=== PATIENT | female | born 1935 | race Caucasian/White ===

== ENCOUNTER 2018-07-21 12:37 | Emergency (ER) | payer MEDICARE, BC ==
[~2018-07-21] VITALS: Ht 152.4 cm; Wt 54.4 kg
[~2018-07-21 12:37] MED LIST: ALENDRONATE SOD70 MG PO; ASPIRIN325 MG PO; CLOPIDOGREL75 MG PO; FOLIC ACID1 MG PO; GINKGO BILOBA120 MG PO; KLONOPIN0.5 MG PO; LEVOTHYROXINE75 MCG PO; LOSARTAN POTAS100 MG PO; METFORMIN HCL500 MG PO; METOPROLOL TART25 MG PO; NAMENDA10 MG PO; PRAVASTATIN SOD20 MG PO; VITAMIN D1000 UNI1 PO; WELLBUTRIN SR150 MG PO
[2018-07-21 13:19] LABS: BASOPHILS # (AUTO) 0.1 (0.0-0.1); EOSINOPHILS # (AUTO) 0.1 (0.0-0.4); EOSINOPHILS % 2.2 % (0.0-6.0); HEMATOCRIT 36.4 % (34.2-44.1); LYMPHOCYTES # (AUTO) 1.2 (1.0-3.2); LYMPHOCYTES % 20.1 % (18.0-39.1); MEAN CORPUSCULAR HEMOGLOBIN 30.1 pg (28-32); MEAN CORPUSCULAR VOLUME 91.2 fL (81-99); MONOCYTES # (AUTO) 0.4 (0.2-0.8); MONOCYTES % 6.7 % (4.4-11.3); NEUTROPHILS # (AUTO) 4.2 (2.1-6.9); NEUTROPHILS % 69.7 % (38.7-80.0); PLATELET COUNT 313 x10e3/uL (140-360); RED BLOOD COUNT 3.99 x10e6/uL (3.6-5.1); RED CELL DISTRIBUTION WIDTH 12.6 % (11.7-14.4)
[2018-07-21 13:37] LABS: ALANINE AMINOTRANSFERASE 15 IU/L (0-55); ALBUMIN 3.6 g/dL (3.5-5.0); ALBUMIN/GLOBULIN RATIO 1.1 (0.8-2.0); ALKALINE PHOSPHATASE 95 IU/L (40-150); ANION GAP 15.4 mmol/L (8-16); BLOOD UREA NITROGEN 13 mg/dL (7-26); BUN/CREATININE RATIO 16 (6-25); CALCIUM 9.9 mg/dL (8.4-10.2); CARBON DIOXIDE 25 mmol/L (22-29); CHLORIDE 102 mmol/L (98-107); CREATININE, SERUM 0.83 mg/dL (0.57-1.11); EST GLOMERULAR FILTRATION RATE > 60 ML/MIN (60-); GLUCOSE 178 mg/dL (74-118); POTASSIUM 3.4 mmol/L (3.5-5.1); SODIUM 139 mmol/L (136-145)
[2018-07-21 13:46] LABS: CLARITY,URINE SL CLOUDY (CLEAR); COLOR,URINE YELLOW (YELLOW)
[2018-07-21 13:48] LABS: BILIRUBIN,URINE NEGATIVE (NEGATIVE); KETONES,URINE NEGATIVE (NEGATIVE); LEUKOCYTE ESTERASE ,URINE NEGATIVE (NEGATIVE); NITRITE,URINE NEGATIVE (NEGATIVE); PROTEIN,URINE DIPSTICK NEGATIVE (NEGATIVE); URINE UROBILINOGEN 0.2 mg/dL (0.2 - 1)
[2018-07-21 13:51] LABS: BACTERIA,URINE MODERATE /HPF; EPITHELIAL CELLS,URINE MODERATE /LPF; RBC,URINE 0-5 /HPF (0-5)
[2018-07-21 14:34] VITALS: BP 168/81
== END 2018-07-21 14:35 | disposition home or self-care (01) ==
LOC: ER 12:37
DX: R25.1 Tremor, unspecified (principal); F03.90 Unspecified dementia, unspecified severity, without behavioral disturbance, psychotic disturbance, mood disturbance, and anxiety; E03.9 Hypothyroidism, unspecified; I25.10 Atherosclerotic heart disease of native coronary artery without angina pectoris; K21.9 Gastro-esophageal reflux disease without esophagitis
CPT/HCPCS: 36415; 80053; 81001; 84443; 85025; 87086; 99283

== ENCOUNTER 2024-05-07 17:16 | Emergency (ER) | payer MEDICARE, BC ==
[~2024-05-07] VITALS: Ht 152.4 cm; Wt 54.4 kg
[2024-05-07 17:38] VITALS: TEMP 98.7
[2024-05-07 18:30] LABS: BASOPHILS # (AUTO) 0.1 (0.0-0.1); BASOPHILS % 0.4 % (0.0-1.0); EOSINOPHILS % 0.3 % (0.0-6.0); HEMATOCRIT 42.5 % (34.2-44.1); HEMOGLOBIN 13.3 g/dL (12.0-16.0); LYMPHOCYTES # (AUTO) 1.8 (1.0-3.2); LYMPHOCYTES % 15.4 % (18.0-39.1); MEAN CORPUSCULAR HEMOGLOBIN 28.1 pg (28-32); MEAN CORPUSCULAR HGB CONC 31.3 g/dL (31-35); MEAN CORPUSCULAR VOLUME 89.9 fL (81-99); MONOCYTES # (AUTO) 1.1 (0.2-0.8); MONOCYTES % 9.7 % (4.4-11.3); NEUTROPHILS # (AUTO) 8.5 (2.1-6.9); NEUTROPHILS % 73.8 % (38.7-80.0); PLATELET COUNT 309 x10e3/uL (140-360); RED BLOOD COUNT 4.73 x10e6/uL (3.6-5.1); RED CELL DISTRIBUTION WIDTH 13.9 % (11.7-14.4); WHITE BLOOD COUNT 11.53 x10e3/uL (4.8-10.8)
[2024-05-07 18:36] LABS: INR 1.12; PROTHROMBIN TIME 15.2 seconds (11.9-14.5)
[2024-05-07 18:37] LABS: PARTIAL THROMBOPLASTIN TIME 28.6 seconds (23.8-35.5)
[2024-05-07 18:43] LABS: ALANINE AMINOTRANSFERASE 8 IU/L (0-55); ALBUMIN 3.4 g/dL (3.5-5.0); ALBUMIN/GLOBULIN RATIO 0.9 (0.8-2.0); ALKALINE PHOSPHATASE 92 IU/L (40-150); ANION GAP 22.9 mmol/L (8-16); BILIRUBIN,TOTAL 0.7 mg/dL (0.2-1.2); BLOOD UREA NITROGEN 17 mg/dL (7-26); BUN/CREATININE RATIO 22 (6-25); CALCIUM 9.5 mg/dL (8.4-10.2); CARBON DIOXIDE 15 mmol/L (22-29); CHLORIDE 101 mmol/L (98-107); CREATINE KINASE 279 IU/L (29-168); CREATININE, SERUM 0.78 mg/dL (0.57-1.11); EST GLOMERULAR FILTRATION RATE 73 ML/MIN (>=60); GLUCOSE 163 mg/dL (74-118); POTASSIUM 3.9 mmol/L (3.5-5.1); SODIUM 135 mmol/L (136-145); TOTAL PROTEIN 7.4 g/dL (6.5-8.1)
[2024-05-07 18:51] LABS: TROPONIN I < 0.001 ng/mL (0-0.300)
[2024-05-07 19:46] VITALS: PULSE 87; RESP 18
[2024-05-07 21:16] VITALS: BP 130/89; PULSE 85; RESP 18; TEMP 98.5; O2SAT 100
== END 2024-05-07 21:18 | disposition home or self-care (01) ==
LOC: ER 17:52
DX: M13.861 Other specified arthritis, right knee (principal); M25.461 Effusion, right knee; M25.061 Hemarthrosis, right knee; E11.65 Type 2 diabetes mellitus with hyperglycemia; E03.9 Hypothyroidism, unspecified; I25.10 Atherosclerotic heart disease of native coronary artery without angina pectoris; K21.9 Gastro-esophageal reflux disease without esophagitis; E78.5 Hyperlipidemia, unspecified; F03.90 Unspecified dementia, unspecified severity, without behavioral disturbance, psychotic disturbance, mood disturbance, and anxiety; M81.0 Age-related osteoporosis without current pathological fracture; Z11.52 Encounter for screening for COVID-19; Z86.12 Personal history of poliomyelitis
CPT/HCPCS: 36415; 70450; 71045; 72125; 72192; 73552; 73700; 80053; 82550; 83735; 84484; 85025; 85610; 85730; 93005; 99284; U0002

== ENCOUNTER 2024-05-11 00:21 | Emergency (ER) | payer MEDICARE, BC ==
[~2024-05-11] VITALS: Ht 152.4 cm; Wt 54.4 kg
[2024-05-11] MEDS: Morphine 2mg Syringe 2 MG/ML SYR IV ONE ×2 (01:11→02:50)
[2024-05-11] MEDS: ONDANSETRON HCL INJ 2MG/ML 2ML 2 MG/ML VIAL IV STA (01:11)
[2024-05-11 01:22] VITALS: PULSE 89; RESP 20
[2024-05-11 01:57] LABS: BASOPHILS # (AUTO) 0.1 (0.0-0.1); BASOPHILS % 0.5 % (0.0-1.0); EOSINOPHILS # (AUTO) 0.1 (0.0-0.4); EOSINOPHILS % 1.1 % (0.0-6.0); HEMATOCRIT 40.2 % (34.2-44.1); HEMOGLOBIN 12.9 g/dL (12.0-16.0); LYMPHOCYTES # (AUTO) 2.1 (1.0-3.2); LYMPHOCYTES % 20.4 % (18.0-39.1); MEAN CORPUSCULAR HEMOGLOBIN 27.9 pg (28-32); MEAN CORPUSCULAR HGB CONC 32.1 g/dL (31-35); MONOCYTES # (AUTO) 0.8 (0.2-0.8); MONOCYTES % 7.2 % (4.4-11.3); NEUTROPHILS # (AUTO) 7.3 (2.1-6.9); NEUTROPHILS % 70.3 % (38.7-80.0); PLATELET COUNT 237 x10e3/uL (140-360); RED BLOOD COUNT 4.62 x10e6/uL (3.6-5.1); WHITE BLOOD COUNT 10.41 x10e3/uL (4.8-10.8)
[2024-05-11 02:02] LABS: INR 1.18; PROTHROMBIN TIME 15.8 seconds (11.9-14.5)
[2024-05-11 02:03] LABS: PARTIAL THROMBOPLASTIN TIME 31.5 seconds (23.8-35.5)
[2024-05-11 02:12] LABS: ALBUMIN 2.7 g/dL (3.5-5.0); ALBUMIN/GLOBULIN RATIO 0.6 (0.8-2.0); ANION GAP 14.3 mmol/L (8-16); BILIRUBIN,TOTAL 0.2 mg/dL (0.2-1.2); CREATININE, SERUM 0.76 mg/dL (0.57-1.11); TOTAL PROTEIN 6.9 g/dL (6.5-8.1)
[2024-05-11 02:27] LABS: POTASSIUM 3.3 mmol/L (3.5-5.1)
[2024-05-11] MEDS ORDERED: Morphine 2mg Syringe 2 MG/ML SYR ONE (02:37)
[2024-05-11 03:29] VITALS: BP 138/80; O2SAT 97
== END 2024-05-11 03:31 | disposition home or self-care (01) ==
LOC: ER 00:41
DX: M25.561 Pain in right knee (principal); M13.861 Other specified arthritis, right knee; M25.461 Effusion, right knee; E11.65 Type 2 diabetes mellitus with hyperglycemia; E78.5 Hyperlipidemia, unspecified; I25.10 Atherosclerotic heart disease of native coronary artery without angina pectoris; F03.90 Unspecified dementia, unspecified severity, without behavioral disturbance, psychotic disturbance, mood disturbance, and anxiety; E03.9 Hypothyroidism, unspecified; K21.9 Gastro-esophageal reflux disease without esophagitis; M81.0 Age-related osteoporosis without current pathological fracture; I25.2 Old myocardial infarction; Z86.12 Personal history of poliomyelitis
CPT/HCPCS: 36415; 80053; 85025; 85610; 85730; 99284; J2270; J2405

== ENCOUNTER 2025-06-28 22:38 | Emergency (ER) | payer BC, MEDICARE ==
[~2025-06-28] VITALS: Ht 152.4 cm; Wt 49.9 kg
[2025-06-29 00:23] VITALS: PULSE 70; RESP 18; TEMP 98
[2025-06-29 00:24] VITALS: BP 148/68; PULSE 70; RESP 18; TEMP 98; O2SAT 98
[2025-06-29] MEDS ORDERED: TYLENOL EXTRA500 MG PO (00:27)
[2025-06-29] MEDS: KETOROLAC TROMETHAMINE 30 MG/ML VIAL IM ONE (00:37)
[2025-06-29] MEDS: ACETAMINOPHEN 325 MG TAB PO ONE (00:37)
== END 2025-06-29 00:38 | disposition home or self-care (01) ==
LOC: FSED 22:52
DX: S00.83XA Contusion of other part of head, initial encounter (principal); S70.01XA Contusion of right hip, initial encounter; W18.30XA Fall on same level, unspecified, initial encounter; Y93.01 Activity, walking, marching and hiking; Y92.89 Other specified places as the place of occurrence of the external cause; F03.90 Unspecified dementia, unspecified severity, without behavioral disturbance, psychotic disturbance, mood disturbance, and anxiety; E11.9 Type 2 diabetes mellitus without complications; E78.5 Hyperlipidemia, unspecified; I25.10 Atherosclerotic heart disease of native coronary artery without angina pectoris; E03.9 Hypothyroidism, unspecified; K21.9 Gastro-esophageal reflux disease without esophagitis; M81.0 Age-related osteoporosis without current pathological fracture; I25.2 Old myocardial infarction; Z86.12 Personal history of poliomyelitis
CPT/HCPCS: 70450; 72192; 99284; J1885